=== PATIENT | female | born 1965 | race Caucasian/White ===

== ENCOUNTER → 2021-12-14 | Outpatient (CLI) | payer OTHER | END | disposition home or self-care (01) | LOC: PREOP 05:35 | PROVIDERS: ATTEND Urology | DX: Z01.818 Encounter for other preprocedural examination (principal) ==

== ENCOUNTER 2022-01-11 06:09 | Day surgery (SDC) | payer MEDICARE, MEDICAID ==
[2022-01-11] VITALS (12 sets, daily range): BP systolic 97–123; BP diastolic 43–72
[~2022-01-11] VITALS: Ht 152.4 cm; Wt 90.0 kg
[~2022-01-11 06:09] MED LIST: ALB0.5V INH; ALBU90AE2 IH; BUDE10.7 IH; BUPR150T9 PO; CLON0.5T PO; CYCL10TA25 PO; DOCU-143 PO; HYDR-3817 PO; MONT10TA21 PO; OXYB5TAB13 PO; PANT40TA2 PO; TOPI50TA37 PO; VENL100T2 PO
[2022-01-11] MEDS ORDERED: cefTRIAXone 1 GM PRE-MIX 50 ML IV ONE ×2 (06:58→07:30)
[2022-01-11] MEDS ORDERED: SEVOFLURANE (ULTANE) 15 ML INHAL SOLN ONE (07:10)
[2022-01-11] MEDS ORDERED: MIDAZOLAM 2 MG/2 ML (VERSED) VIAL ONE (07:10)
[2022-01-11] MEDS ORDERED: fentaNYL INJ 100 MCG/2 ML AMP ONE (07:10)
[2022-01-11] MEDS ORDERED: LIDOCAINE PF 2% 5 ML (XYLOCAINE) VIAL ONE (07:10)
[2022-01-11] MEDS ORDERED: proPOfol 200 MG/20 ML (DIPRIVAN) VIAL IV ONE (07:10)
[2022-01-11] MEDS ORDERED: ONDANSETRON 4 MG/2 ML (SDV) Z0FRAN ONE (07:10)
--- NOTE | 2022-01-11 07:16 | Progress Note-Pre Operative ---
Pre-Operative Progress Note H&P Reviewed The H&P was reviewed, patient examined and no changes noted. Date Seen by Provider: Jan 11, 2022 Time Seen by Provider: 07:16 Date H&P Reviewed: Jan 11, 2022 Time H&P Reviewed: 07:16 Pre-Operative Diagnosis: MIXED INCONTINENCE AND OAB JAVIER VALENCIA MD Jan 11, 2022 07:16
--- NOTE | 2022-01-11 07:20 | Progress Note-Post Operative ---
Post-Operative Progess Note Surgeon (s)/Manager Employment (s) Surgeon JAVIER VALENCIA MD Manager Employment: NONE Pre-Operative Diagnosis MIXED INCONTINENCE, CYSTOCELE AND OAB Post-Operative Diagnosis SAME Procedure & Operative Findings Date of Procedure 01/11/22 Procedure Performed/Findings ANTERIOR REPAIR, PVS AND CYSTOSCOPY Anesthesia Type GENERAL Estimated Blood Loss Estimated blood loss (mL): NEGLIGIBLE Specimens/Packing Specimens Removed NONE TO PATH [employer] ESTRACE VAG PACK JAVIER VALENCIA MD Jan 11, 2022 07:20
[2022-01-11] MEDS ORDERED: LIDOCAINE/EPI 2% 1:200,00 (XYLOCAINE) 20 ML VIAL ONE (07:23)
[2022-01-11] MEDS ORDERED: ESTRADIOL VAGINAL CREAM 42.5 GM (ESTRACE) VG ONE (07:24)
[2022-01-11] MEDS ORDERED: LACTATED RINGERS 1,000 ML IV PRN (07:30)
--- NOTE | 2022-01-11 08:35 | Anesthesia-General Post-Op ---
General Patient Condition Mental Status/LOC: Same as Preop Cardiovascular: Satisfactory Nausea/Vomiting: Absent Respiratory: Satisfactory Pain: Controlled Complications: Absent Post Op Complications Complications None Follow Up Care/Instructions Patient Instructions None needed. Anesthesia/Patient Condition Patient Condition Patient is doing well, no complaints, stable vital signs, no apparent adverse anesthesia problems. No complications reported per nursing. JAY RAMÍREZ CRNA Jan 11, 2022 08:35
[2022-01-11] MEDS ORDERED: MEPERIDINE (DEMEROL) INJ 50 MG/ML IVP ONE (08:45)
[2022-01-11] MEDS ORDERED: morphine INJ 10 MG/ML 1ML (SYR OR VIAL) IVP ONE (08:45)
[2022-01-11] MEDS ORDERED: HYDROmorphone 2 MG/ML VIAL (DILAUDID) IV ONE (08:45)
[2022-01-11] MEDS ORDERED: ONDANSETRON 4 MG/2 ML (SDV) Z0FRAN IVP PRN (08:45)
[2022-01-11] MEDS ORDERED: PROMETHAZINE INJ 25 MG/ML (PHENERGAN) AMP IVP ONE (08:45)
[2022-01-11] MEDS ORDERED: D5 LR IV SOLUTION 1,000 ML IV ONE (10:24)
[2022-01-11] MEDS ORDERED: LACTATED RINGERS 1,000 ML IV ONE (10:32)
[2022-01-11] MEDS: LACTATED RINGERS 1,000 ML IV SCH ×2 (10:37→20:42)
[2022-01-11] MEDS: oxyCODONE/APAP 5/325MG (PERCOCET 5) TABLET PO PRN ×3 (10:51→20:42)
--- NOTE | 2022-01-11 15:24 | OPERATIVE REPORT ---
DATE OF SERVICE: 01/11/2022 PREOPERATIVE DIAGNOSES: 1. Cystocele. 2. Mixed incontinence and overactive bladder. POSTOPERATIVE DIAGNOSES: 1. Cystocele. 2. Mixed incontinence and overactive bladder. OPERATION PERFORMED: Anterior repair, pubovaginal sling, and cystoscopy. SURGEON: Justyn Valencia MD. ANESTHESIA: General. COMPLICATIONS: None. DESCRIPTION OF PROCEDURE: Under satisfactory general anesthesia, the patient in extended lithotomy position, genitalia were prepped and draped in the usual sterile fashion with separate vaginal prep. Catheter was inserted and the bladder was drained. The anterior vaginal wall was infiltrated with 2% lidocaine and epinephrine. An incision was made vertically and the mucosa was sharply dissected away from the underlying fascia. The fascia was approximated with interrupted 2-0 Vicryl to give excellent support to the bladder. The pubovaginal sling of the Desara II type was passed on both sides using the described technique. The sling was sitting nicely under the mid urethra with no twist, no tension, and passage of a curved hemostat easily between it and the underlying tissue. The Bloom catheter was removed and cystoscopy confirmed intact bladder, ureteric orifice and urethra with no foreign body in the bladder or else and presence of the sling under the mid urethra. The bladder was left full and the cystoscope was removed. A manual Valsalva maneuver was negative. The excess vaginal mucosa was sharply excised and then the mucosa was approximated with running 2-0 Vicryl Rapide type suture. Two grams Estrace vaginal pack was inserted. Needle, sponge, instrument counts were correct x2. Estimated blood loss was negligible. The patient tolerated the procedure and anesthesia well and was sent to recovery room in a stable condition. Job ID: [id number] DocumentID: [id number] Dictated Date: 01/11/2022 08:37:32 Railway Equipment Operator Date: 01/11/2022 15:24:35 Dictated By: JUSTYN VALENCIA MD
[2022-01-11] MEDS: DOCUSATE SODIUM 100 MG (COLACE) CAP PO SCH (20:42)
[2022-01-12] VITALS: BP 125/67
[2022-01-12] MEDS: oxyCODONE/APAP 5/325MG (PERCOCET 5) TABLET PO PRN ×3 (01:10→09:35)
[2022-01-12 04:30] VITALS: BP 129/62
[2022-01-12] MEDS: LACTATED RINGERS 1,000 ML IV SCH ×2 (04:35→07:47)
[2022-01-12 08:32] VITALS: BP 128/62
[2022-01-12] MEDS: DOCUSATE SODIUM 100 MG (COLACE) CAP PO SCH (09:36)
--- NOTE | 2022-01-12 09:59 | Progress Note - Urology ---
Progress Note-Urology Progress Notes/Assess & Plan Progress/Assessment & Plan DOING AND FEELING VERY WELL. HERNANDEZ OUT. NO LEAK. NOT VOIDED YET Final Diagnosis INCONTINENCE, CYSTOCELE, AND OAB JAVIER VALENCIA MD Jan 12, 2022 09:59
[2022-01-12 14:58] VITALS: BP 128/62
== END 2022-01-12 15:00 | disposition home or self-care (01) ==
LOC: SDC 06:09 → WS 09:25 → SDC 09:25
PROVIDERS: ATTEND Urology
DX: N81.10 Cystocele, unspecified (principal); N39.46 Mixed incontinence; N32.81 Overactive bladder; E66.9 Obesity, unspecified; Z68.37 Body mass index [BMI] 37.0-37.9, adult
CPT/HCPCS: 57240; 57288; 87081; 94664; C1771